=== PATIENT | female | born 1960 | race Two or more races ===

== ENCOUNTER 2017-06-23 15:46 | Emergency (ER) | payer MEDICARE, OTHER ==
[~2017-06-23] VITALS: Ht 170.2 cm; Wt 86.2 kg
[2017-06-23 15:54] VITALS: BP 130/61
== END 2017-06-23 17:44 | disposition home or self-care (01) ==
LOC: ER 15:51
DX: S82.62XA Displaced fracture of lateral malleolus of left fibula, initial encounter for closed fracture (principal); Z88.8 Allergy status to other drugs, medicaments and biological substances; G89.4 Chronic pain syndrome; W18.39XA Other fall on same level, initial encounter; Y93.89 Activity, other specified; Y92.89 Other specified places as the place of occurrence of the external cause; Y99.8 Other external cause status
CPT/HCPCS: 29515; 73610